=== PATIENT | female | born 1995 | race Hispanic/Latino ===

== ENCOUNTER 2018-04-01 16:43 | Emergency (ER) | payer OTHER ==
[2018-04-01 16:45] VITALS: RESP 16
[2018-04-01 18:03] LABS: BASO # 0.1 K/uL (0.0-0.2); BASO % 0.8 % (0.0-2.0); EOS % 0.4 % (0.0-4.0); HEMOGLOBIN 14.4 g/dL (12.0-16.0); LYMPH # 1.7 K/uL (1.0-4.3); LYMPH % 24.8 % (20.0-40.0); MEAN CELL VOLUME 91.8 fl (81.0-99.0); MEAN CORPUSCULAR HEMOGLOBIN 29.9 pg (27.0-31.0); MEAN CORPUSCULAR HGB CONC 32.6 g/dL (33.0-37.0); MEAN PLATELET VOLUME 7.2 fl (7.2-11.7); MONO # 0.5 K/uL (0.0-0.8); NEUT # 4.6 K/uL (1.8-7.0); NRBC % 0.1 % (0.0-0.0); RBC 4.83 Mil/uL (3.80-5.20); RED CELL DISTRIBUTION WIDTH 13.7 % (11.5-14.5); WHITE BLOOD COUNT 6.9 K/uL (4.8-10.8)
[2018-04-01 18:15] LABS: ALB/GLOB RATIO 1.4 (1.0-2.1); ALBUMIN 4.8 g/dL (3.5-5.0); ALT/SGPT 27 U/L (9-52); AST/SGOT 42 U/L (14-36); BLOOD UREA NITROGEN 16 mg/dl (7-17); CALCIUM 9.8 mg/dL (8.4-10.2); GFR NON-AFRICAN AMERICAN > 60
[2018-04-01 18:20] LABS: SQUAMOUS EPITHIAL 10 /hpf (0-5); URINE BACTERIA MOD (<OCC); URINE BILIRUBIN NEGATIVE (NEGATIVE); URINE BLOOD NEGATIVE (NEGATIVE); URINE CLARITY SLIGHTY-CLOUDY (Clear); URINE COLOR YELLOW (YELLOW); URINE GLUCOSE (UA) NEG (NEGATIVE); URINE LEUKOCYTE ESTERASE NEG Leu/uL (Negative); URINE PROTEIN NEGATIVE (NEGATIVE); URINE UROBILINOGEN 0.2-1.0 mg/dL (0.2-1.0)
[2018-04-01 18:25] LABS: B-TYPE NATRIURETIC PEPTIDE 27.2 pg/ml (0-450)
[2018-04-01 18:49] LABS: BARBITURATES, UR NEGATIVE (NEGATIVE); BENZODIAZEPINES, UR NEGATIVE (NEGATIVE); OPIATES, UR NEGATIVE (NEGATIVE); PHENCYCLIDINE, UR NEGATIVE (NEGATIVE)
--- NOTE | 2018-04-01 19:13 | ED PDOC ---
HPI: SOB/CHF/COPD Time Seen by Provider: 04/01/18 16:54 Chief Complaint (Nursing): Shortness Of Breath Chief Complaint (Provider): Shortness of Breath History Per: Patient History/Exam Limitations: no limitations Onset/Duration Of Symptoms: Hrs Current Symptoms Are (Timing): Still Present Additional Complaint(s): 22 year old woman with a history of ADHA and possible anxiety presents to the ED for an evaluation of sudden onset of shortness of breath, palpit ations, chest pain and tingling sensation to arms and neck. Patient reports the tingling lasted for few minutes associated with cramping on hands and abdomen. She tried to get up and walk to tell her boss she is not feeling well but she could not walk. Patient was feeling fine in the morning at work without any stress. She just reports of irregular work schedule due to holiday and she did not take Vivance for a few days this week, including today. Otherwise, patient denies cough, fever or rash. PMD: [facility] - Risk Factors PE Risk Factors: Pos: Decreased Mobilty /Activity Past Medical History Reviewed: Historical Data, Nursing Documentation, Vital Signs Vital Signs: Last Vital Signs Temp 97.5 F L 04/01/18 16:45 Pulse 91 H 04/01/18 16:45 Resp 16 04/01/18 16:45 BP 150/69 04/01/18 16:45 Pulse Ox 99 04/01/18 17:58 - Medical History PMH: Anxiety Other PMH: ADHD - Surgical History Other surgeries: wrist surgery - Family History Family History: States: Other Other Family History: ADHD - Social History Current smoker - smoking cessation education provided: No Alcohol: Social Drugs: Denies - Immunization History Hx Tetanus Toxoid Vaccination: No Hx Influenza Vaccination: No Hx Pneumococcal Vaccination: No - Allergies Allergies/Adverse Reactions: Allergies Allergy/AdvReac Type Severity Reaction Status Date / Time No Known Allergies Allergy Verified 04/01/18 16:50 Review of Systems ROS Statement: Except As Marked, All Systems Reviewed And Found Negative (As per HPI, otherwise negative) Constitutional: Negative for: Fever Cardiovascular: Positive for: Chest Pain, Palpitations Respiratory: Negative for: Cough Neurological: Positive for: Other (tingling on arms and neck) Physical Exam - Reviewed Nursing Documentation Reviewed: Yes - Physical Exam Appears: Positive for: In Acute Distress Head Exam: Positive for: ATRAUMATIC, NORMOCEPHALIC Skin: Positive for: Warm, Dry Eye Exam: Positive for: EOMI, PERRL ENT: Positive for: Other (dry mucous membrane) Neck: Positive for: Painless ROM, Supple Cardiovascular/Chest: Positive for: Regular Rate, Rhythm. Negative for: Murmur Respiratory: Positive for: Normal Breath Sounds, Other (hyperventilating). Negative for: Rhonchi, Wheezing Gastrointestinal/Abdominal: Positive for: Soft. Negative for: Tenderness Back: Positive for: Normal Inspection. Negative for: Muscle Spasm Extremity: Positive for: Normal ROM. Negative for: Deformity Lymphatic: Negative for: Adenopathy Neurologic/Psych: Positive for: Alert, Oriented, Mood/Affect (anxious mood and anxious affect). Negative for: Motor/Sensory Deficits - Laboratory Results Result Diagrams: 04/01/18 17:52 04/01/18 17:52 - ECG ECG Rhythm: Positive for: Normal QRS, Normal ST Segment, Sinus Rhythm Rate: 76 O2 Sat by Pulse Oximetry: 99 (RA) Pulse Ox Interpretation: Normal Medical Decision Making Medical Decision Making: Time: 1751 Initial Impression: palpitation Differential Diagnosis: panic attack, thyroid disfunction, arrhythmia, electrolyte abnormalities EKG Alcohol serum B-type natriuretic peptide CMP Creatine phosphokinase Drug screen Lact acid, plasma Magnesium Phosphorous Thyroid SH Troponin I ED ED urine dipstick CBC w/ Differential D Dimer Chest two views Diazepam 5mg Urinalysis Reevaluation Labs with no emergently significant abnormalities CXR no infiltrate or effusion or pneumothorax On reeval pt appears better and reports feeling a little bit better with ER observation and treatment. Stable for discharge with followup PMD. Results available requested and given directly to patient and faxed to PMD's office at [facility] patient. ------ Scribe Attestation: Documented by Garry Romero, acting as a scribe for Ita Lamar MD Provider Scribe Attestation: All medical record entries made by the Scribe were at my direction and personally dictated by me. I have reviewed the chart and agree that the record accurately reflects my personal performance of the history, physical exam, medical decision making, and the department course for this patient. I have also personally directed, reviewed, and agree with the discharge instructions and disposition. Disposition - Clinical Impression Clinical Impression: Dyspnea Counseled Patient/Family Regarding: Studies Performed, Diagnosis - Disposition Disposition: Routine/Home Disposition Time: 20:00 Condition: IMPROVED Additional Instructions: FOLLOW UP WITH DR NORWOOD OR [facility] [employer] IN 24-48 HOURS FOR REEVALUATION AND FURTHER MANAGEMENT. Instructions: Shortness of Breath (Dyspnea) (DC) Forms: [facility] ED School/Work Excuse
[2018-04-01 20:58] VITALS: BP 131/64; TEMP 97.9
[2018-04-01 22:09] VITALS: PULSE 76; O2SAT 99
--- NOTE | 2018-04-02 08:39 | RAD ---
Date of service: 04/01/2018 HISTORY: Shortness of breath COMPARISON: No prior. TECHNIQUE: Chest PA and lateral FINDINGS: LINES AND TUBES: None. LUNG AND PLEURA: The lungs are well inflated and clear. No pleural effusion or pneumothorax. HEART AND MEDIASTINUM: The heart is not enlarged. No aortic atherosclerotic calcification present. The hilar and mediastinal contours are within normal limits. SKELETAL STRUCTURES: The bony structures are within normal limits for the patient's age. VISUALIZED UPPER ABDOMEN: Normal. OTHER FINDINGS: None. IMPRESSION: No active pulmonary disease.
--- NOTE | 2018-04-02 18:39 | CARD ---
APPROVED REPORT Date of service: 04/01/2018 EKG Measurement Heart [id number] <Conclusion> Sinus bradycardia Otherwise normal ECG
--- NOTE | 2018-04-02 18:42 | CARD ---
APPROVED REPORT Date of service: 04/01/2018 EKG Measurement Heart [id number] <Conclusion> Normal sinus rhythm Otherwise normal ECG
== END 2018-04-01 20:15 | disposition home or self-care (01) ==
LOC: H.ER 16:43
DX: R06.00 Dyspnea, unspecified (principal); J44.9 Chronic obstructive pulmonary disease, unspecified; F90.9 Attention-deficit hyperactivity disorder, unspecified type